=== PATIENT | female | born 1985 | race Caucasian/White ===

== ENCOUNTER 2019-09-18 11:00 | Day surgery (SDC) | payer BC, SELFPAY ==
[2019-09-12 12:08] LABS: CLARITY,URINE CLEAR (Clear); COLOR,URINE YELLOW (Yellow); GLUCOSE, URINE NEGATIVE (Neg); KETONES,URINE 15 mg/dl (Neg); LEUKOCYTE ESTERASE ,URINE NEGATIVE (Neg); NITRITES, URINE NEGATIVE (Neg); OCCULT BLOOD,URINE NEGATIVE (Neg); PROTEIN,URINE NEGATIVE (Neg); UROBILINOGEN,URINE 0.2 E.U/dL (0.2-1.0)
[2019-09-12 12:11] LABS: BASOPHILS % (AUTO) 0.6 % (0-1); EOSINOPHILS # (AUTO) 0.1 X10'3 (0-0.9); EOSINOPHILS % (AUTO) 1.3 % (0-6); LYMPHOCYTES # (AUTO) 2.2 X10'3 (1.1-4.8); LYMPHOCYTES % (AUTO) 35.2 % (21-51); MEAN CORPUSCULAR HEMOGLOBIN 29.3 PG (27.0-31.0); MEAN CORPUSCULAR VOLUME 86.1 FL (78-98); MEAN PLATELET VOLUME 7.5 FL (7.4-10.4); MONOCYTES # (AUTO) 0.5 X10'3 (0-0.9); MONOCYTES % (AUTO) 7.4 % (2-12); NEUTROPHILS # (AUTO) 3.4 X10'3 (1.8-7.7); NEUTROPHILS % (AUTO) 55.5 % (42-75); PRE OP HEMATOCRIT 42.8 % (35.0-45.0); PRE OP HEMOGLOBIN 14.6 g/dL (12.0-16.0); PRE OP PLATELET COUNT 215 X10'3 (140-440); RED BLOOD COUNT 4.97 X10'6 (4.20-5.60); RED CELL DISTRIBUTION WIDTH 13.4 % (11.5-14.5)
[2019-09-12 12:13] LABS: HCG SERUM QL NEGATIVE
[2019-09-12 12:22] LABS: ALBUMIN 4.2 G/DL (3.4-5.0); ALBUMIN/GLOBULIN RATIO 1.2 (1.1-1.5); ALKALINE PHOSPHATASE 62 IU/L (46-116); BLOOD UREA NITROGEN 13 MG/DL (7-18); BUN/CREATININE RATIO 15.5 (6.6-38.0); CALCIUM 9.1 MG/DL (8.5-10.1); CHLORIDE 105 MMOL/L (99-107); CREATININE 0.84 MG/DL (0.40-0.90); PRE OP ALT 23 U/L (30-65); PRE OP ANION GAP 11 (8-16); PRE OP AST 18 U/L (10-37); PRE OP BILIRUB, TOTAL 0.4 MG/DL (0.0-1.0); PRE OP GLUCOSE 92 MG/DL (70-104); PRE OP POTASSIUM 3.5 MMOL/L (3.4-5.1); PRE OP SODIUM 141 MMOL/L (135-145); TOTAL CARBON DIOXIDE 25.3 MMOL/L (24-32); TOTAL PROTEIN 7.6 G/DL (6.4-8.2); eGFR 79 ML/MIN
[2019-09-12 12:25] LABS: UA COLLECTION TYPE CLN CATCH MIDSTREAM
[~2019-09-18] VITALS: Ht 165.1 cm; Wt 83.9 kg
[2019-09-18] VITALS (7 sets, daily range): BP systolic 91–129; BP diastolic 54–81
[~2019-09-18 11:00] MED LIST: GENTAMICIN IV ONE; LACT1CAP65 PO; NORMAL SALINE IV ONE; famotidine 20mg tablet PO ONE; ringers solution, lacted 1,000 ML IV SCH; vancomycin 1,500 MG in NS 300ml IV soln IV ONE
[2019-09-18] MEDS ORDERED: fentaNYL/PF 50MCG/1 ML 2ML syringe ONE (14:54)
[2019-09-18] MEDS ORDERED: sevoflurane 250ml liquid IH ONE (14:55)
[2019-09-18] MEDS ORDERED: midazolam 2 mg/2 ml injection ONE (14:57)
[2019-09-18] MEDS ORDERED: propofol inj 20 ML IV ONE (14:57)
[2019-09-18] MEDS ORDERED: ringers solution, lacted 1,000 ML IV SCH (15:09)
[2019-09-18] MEDS ORDERED: meperidine/PF 25mg/ml syringe IV PRN ×3 (15:10)
[2019-09-18] MEDS ORDERED: ondansetron/PF 4mg/2ml inj IV PRN (15:10)
[2019-09-18] MEDS ORDERED: morphine 2 MG/ML inj. syringe IV PRN (15:10)
[2019-09-18] MEDS ORDERED: proCHLORperazine 10 MG/2 ml inj IV PRN (15:10)
[2019-09-18] MEDS ORDERED: morphine 4 MG/ML inj SYRINge IV PRN (15:10)
[2019-09-18] MEDS ORDERED: dexamethasone sod phosphate 4mg/ml inj. ONE (15:25)
[2019-09-18] MEDS ORDERED: ondansetron/PF 4mg/2ml inj ONE (15:25)
[2019-09-18] MEDS ORDERED: ketorolac trometh. 30mg/ml inj. ONE (15:30)
--- NOTE | 2019-09-18 15:39 | NUR ---
Received from OR via , accompanied by Anesthesiologist DR APPIAH and report given by Anesthesiolgist. AWAKENS TO VOICE. VITALS STABLE. DRESSING DI. ELISA PAIN.
--- NOTE | 2019-09-18 16:49 | NUR ---
AWAKE AND ORIENTED. VITALS STABLE. DRESSING DI. ELISA PAIN. HOME WITH HER SPOUSE AT THIS TIME.
== END 2019-09-18 16:49 | disposition home or self-care (01) ==
LOC: PAS 11:00
PROVIDERS: ATTEND Obstetrics & Gynecology Obstetrics
DX: N93.8 Other specified abnormal uterine and vaginal bleeding (principal); D64.9 Anemia, unspecified; M19.90 Unspecified osteoarthritis, unspecified site; F32.9 Major depressive disorder, single episode, unspecified; E66.9 Obesity, unspecified; Z68.30 Body mass index [BMI] 30.0-30.9, adult; Z98.890 Other specified postprocedural states; Z11.59 Encounter for screening for other viral diseases; Z79.899 Other long term (current) drug therapy; Z88.5 Allergy status to narcotic agent; Z88.0 Allergy status to penicillin; Z72.89 Other problems related to lifestyle; Z83.3 Family history of diabetes mellitus; Z82.49 Family history of ischemic heart disease and other diseases of the circulatory system
CPT/HCPCS: 36415; 58563; 80053; 81003; 82948; 84703; 85025; 86885; 86900; 86901; J1100; J1580; J1885; J2250; J2405; J2704; J3010; J3370; J7040; J7120; U0003; A4264; A4355; A4618; A6258; A7000

== ENCOUNTER 2022-12-21 05:26 | Day surgery (SDC) | payer BC, SELFPAY ==
[2022-12-14 14:35] LABS: BASOPHILS % (AUTO) 0.6 % (0-1); EOSINOPHILS # (AUTO) 0.1 X10'3 (0-0.9); EOSINOPHILS % (AUTO) 0.8 % (0-6); LYMPHOCYTES # (AUTO) 1.7 X10'3 (1.1-4.8); LYMPHOCYTES % (AUTO) 24.1 % (21-51); MEAN CORPUSCULAR HGB CONC 33.7 g/dL (33.0-36.5); MEAN CORPUSCULAR VOLUME 86.1 FL (78-98); MEAN PLATELET VOLUME 7.3 FL (7.4-10.4); MONOCYTES # (AUTO) 0.5 X10'3 (0-0.9); MONOCYTES % (AUTO) 6.6 % (2-12); NEUTROPHILS # (AUTO) 4.8 X10'3 (1.8-7.7); NEUTROPHILS % (AUTO) 67.9 % (42-75); PRE OP HEMOGLOBIN 14.1 g/dL (12.0-16.0); PRE OP PLATELET COUNT 242 X10'3 (140-440); PRE OP WHITE BLOOD COUNT 7.1 10'3 (4.8-10.8); RED BLOOD COUNT 4.87 X10'6 (4.20-5.60); RED CELL DISTRIBUTION WIDTH 14.3 % (11.5-14.5)
[2022-12-14 14:35] LABS: BILIRUBIN,URINE NEGATIVE (Neg); CLARITY,URINE CLEAR (Clear); COLOR,URINE STRAW (Yellow); GLUCOSE, URINE NEGATIVE (Neg); KETONES,URINE TRACE mg/dl (Neg); LEUKOCYTE ESTERASE ,URINE NEGATIVE (Neg); NITRITES, URINE NEGATIVE (Neg); OCCULT BLOOD,URINE NEGATIVE (Neg); PROTEIN,URINE NEGATIVE (Neg); UROBILINOGEN,URINE 0.2 E.U/dL (0.2-1.0)
[2022-12-14 14:52] LABS: ALBUMIN/GLOBULIN RATIO 1.2 (1.1-1.5); ALKALINE PHOSPHATASE 72 IU/L (46-116); BLOOD UREA NITROGEN 12 MG/DL (7-18); BUN/CREATININE RATIO 13.5 (10.0-20.0); CALCIUM 8.8 MG/DL (8.5-10.1); CHLORIDE 105 MMOL/L (99-107); CREATININE 0.89 MG/DL (0.40-0.90); PRE OP ALT 24 U/L (30-65); PRE OP ANION GAP 9 (8-16); PRE OP AST 10 U/L (10-37); PRE OP BILIRUB, TOTAL 0.3 MG/DL (0.0-1.0); PRE OP GLUCOSE 102 MG/DL (70-104); PRE OP POTASSIUM 3.5 MMOL/L (3.4-5.1); PRE OP SODIUM 139 MMOL/L (135-145); TOTAL CARBON DIOXIDE 25.3 MMOL/L (24-32); TOTAL PROTEIN 7.4 G/DL (6.4-8.2); eGFR 72 ML/MIN
[2022-12-14 14:54] LABS: HCG SERUM QL NEGATIVE
[2022-12-14 15:11] LABS: UA COLLECTION TYPE CLN CATCH MIDSTREAM
[~2022-12-21] VITALS: Ht 165.1 cm; Wt 93.6 kg
[2022-12-21] VITALS (14 sets, daily range): BP systolic 97–117; BP diastolic 48–70; PULSE 70–94; RESP 10–21; TEMP 97.2–98.1; O2SAT 93–100
[~2022-12-21 05:26] MED LIST changes: -GENTAMICIN IV ONE; -NORMAL SALINE IV ONE; -famotidine 20mg tablet PO ONE; -ringers solution, lacted 1,000 ML IV SCH; -vancomycin 1,500 MG in NS 300ml IV soln IV ONE
[2022-12-21] MEDS ORDERED: famotidine 20mg tablet PO ONE (05:30)
[2022-12-21] MEDS ORDERED: vancomycin 1,500 MG in NS 300ml IV soln IV ONE (05:30)
[2022-12-21] MEDS ORDERED: clindamycin-Cleocin 900mg/D5W 50 ML IV ONE (05:30)
[2022-12-21] MEDS: ringers solution, lacted 1,000 ML IV SCH ×4 (06:20→18:05)
[2022-12-21] MEDS ORDERED: fentaNYL /PF 50mcg/ml 5ml ampule ONE (07:27)
[2022-12-21] MEDS ORDERED: midazolam 1 mg/ML 2ml injection ONE (07:27)
[2022-12-21] MEDS ORDERED: rocuronium 10mg/ml inj IV ONE (07:30)
[2022-12-21] MEDS ORDERED: dexamethasone sod phosphate 4mg/ml inj. ONE (07:30)
[2022-12-21] MEDS ORDERED: propofol inj 20 ML IV ONE (07:30)
[2022-12-21] MEDS ORDERED: LIDOcaine 2% (20mg/ml) 5ml vial ONE (07:30)
[2022-12-21] MEDS ORDERED: morphine 4 MG/ML inj SYRINge IV PRN (07:35)
[2022-12-21] MEDS ORDERED: morphine 2 MG/ML inj. syringe IV PRN (07:35)
[2022-12-21] MEDS ORDERED: ringers solution, lacted 1,000 ML IV SCH (07:35)
[2022-12-21] MEDS ORDERED: ondansetron/PF 4mg/2ml inj IV PRN ×2 (07:35→10:05)
[2022-12-21] MEDS ORDERED: meperidine/PF 25mg/ml syringe IV PRN ×2 (07:35)
[2022-12-21] MEDS ORDERED: proCHLORperazine 10 MG/2 ml inj IV PRN (07:35)
[2022-12-21] MEDS ORDERED: clindamycin phosphate 40gm vag cream ONE (07:44)
[2022-12-21] MEDS ORDERED: BUPIVAcaine/PF 2.5 mg/ml (0.25%) 30ml vial ONE (07:45)
[2022-12-21] MEDS ORDERED: neomy sulf/polymyxin B sulf. GU irrigation 1ml amp IR ONE ×2 (07:45→08:25)
[2022-12-21] MEDS ORDERED: vasoPRESSIN 20 units/ml inj. ONE (07:46)
[2022-12-21] MEDS ORDERED: sevoflurane 250ml liquid IH ONE (07:50)
[2022-12-21] MEDS ORDERED: ondansetron/PF 4mg/2ml inj ONE (07:54)
[2022-12-21] MEDS ORDERED: BUPIVAcaine/PF 2.5mg/ml (0.25%) 10ml vial IJ ONE (08:25)
[2022-12-21] MEDS ORDERED: clindamycin phosphate 40gm vag cream VG ONE (09:17)
[2022-12-21] MEDS ORDERED: ketorolac tromethamine 15mg/ml inj. IV PRN (10:05)
[2022-12-21] MEDS ORDERED: temazepam 15mg capsule PO PRN (10:05)
[2022-12-21] MEDS ORDERED: metoclopramide 5 mg/ml inj IV PRN (10:05)
[2022-12-21] MEDS ORDERED: normal saline 500ml IV soln 500 ML IV PRN (10:05)
[2022-12-21] MEDS ORDERED: LORazepam 2 mg/ml vial IV PRN (10:05)
[2022-12-21] MEDS ORDERED: diphenhydrAMINE 50 mg/ml inj IV PRN (10:05)
[2022-12-21] MEDS ORDERED: ketorolac trometh. 30mg/ml inj. IV PRN (10:05)
[2022-12-21] MEDS ORDERED: magnesium hydroxide 30ml (MOM) UD suspension PO PRN (10:05)
--- NOTE | 2022-12-21 10:18 | NUR ---
Received from OR via HOSPITAL BED, accompanied by Anesthesiologist DR. MI and report given by Anesthesiolgist. LAP SITES CDI, DERMABOND. MASK5L WITH 99% O2. LEFT HAND 20G PIV WITH LR INFUSING PER ORDER. RESPONDS TO VERBAL STIMULI. VSS.
[2022-12-21] MEDS: meperidine/PF 25mg/ml syringe IV PRN ×2 (10:35→10:51)
--- NOTE | 2022-12-21 10:58 | NUR ---
PATIENT MEETS DISCHARGE CRITERIA FROM RECOVERY. REPORT CALLED TO FARZAD PRIMARY NURSE. PATIENT TRANSPORTED WITH BELONGINGS TO [facility]. STATES PAIN IS MANAGEABLE. LAP SITES INTACT.
[2022-12-21] MEDS: traMADol 50MG tablet PO PRN ×2 (13:17→18:38)
--- NOTE | 2022-12-21 17:46 | NUR ---
Per MD chatterjee to d/c catheter. Catheter was removed at 1645 and pt has been up to the restroom and urinated. Pt wishes to discharge tonight. MD chatterjee with discharge plan. .
--- NOTE | 2022-12-21 18:43 | NUR ---
Problems reprioritized. Patient report given, questions answered & plan of care reviewed with DANICA Song.
--- NOTE | 2022-12-21 18:46 | NUR ---
Discharge paper given to pt. and all the instruction explained to pt. Pt. went home via car with family.
[2022-12-21] MEDS ORDERED: docusate sod 100mg capsule PO SCH (20:00)
[2022-12-22] MEDS ORDERED: lactobacillus rhamnosus 10,000 MMU CELLS/CAPSULE PO SCH (08:00)
== END 2022-12-21 18:50 | disposition home or self-care (01) ==
LOC: PAS 05:26 → ORTHO 4S 10:13 → PAS 18:50
PROVIDERS: ATTEND Obstetrics & Gynecology Obstetrics
DX: N92.1 Excessive and frequent menstruation with irregular cycle (principal); M19.90 Unspecified osteoarthritis, unspecified site; E28.2 Polycystic ovarian syndrome; E66.9 Obesity, unspecified; Z68.32 Body mass index [BMI] 32.0-32.9, adult; Z79.899 Other long term (current) drug therapy; Z98.890 Other specified postprocedural states; Z88.0 Allergy status to penicillin; Z88.5 Allergy status to narcotic agent
CPT/HCPCS: 36415; 58552; 71046; 80053; 81003; 82948; 84703; 85025; 86885; 86900; 86901; 93005; J1100; J2175; J2250; J2405; J2704; J3010; J3370; J3490; J7030; J7120; Z7506; Z7508; Z7512; A4314; A4618; A7000; G0378

== ENCOUNTER 2023-08-29 15:57 | Emergency (ER) | payer BC ==
[~2023-08-29] VITALS: Ht 165.1 cm; Wt 96.2 kg
[2023-08-29 16:09] VITALS: BP 126/75; PULSE 81; RESP 16; TEMP 97.8; O2SAT 99
[2023-08-29 17:37] LABS: BASOPHILS % (AUTO) 0.2 % (0-1); EOSINOPHILS % (AUTO) 0.2 % (0-6); HEMATOCRIT 43.6 % (35.0-45.0); HEMOGLOBIN 14.8 g/dl (12.0-16.0); LYMPHOCYTES # (AUTO) 1.1 X10'3 (1.1-4.8); LYMPHOCYTES % (AUTO) 8.7 % (21-51); MEAN CORPUSCULAR HEMOGLOBIN 29.1 PG (27.0-31.0); MEAN CORPUSCULAR VOLUME 85.8 FL (78-98); MEAN PLATELET VOLUME 7.4 FL (7.4-10.4); MONOCYTES # (AUTO) 0.5 X10'3 (0-0.9); MONOCYTES % (AUTO) 3.8 % (2-12); NEUTROPHILS % (AUTO) 87.1 % (42-75); PLATELET COUNT 263 X10'3 (140-440); RED BLOOD COUNT 5.08 X10'6 (4.20-5.60); RED CELL DISTRIBUTION WIDTH 13.6 % (11.5-14.5); WHITE BLOOD COUNT 12.6 X10'3 (4.5-11.0)
[2023-08-29 17:57] LABS: ALANINE AMINOTRANSFERASE 22 U/L (12-78); ALBUMIN 4.1 G/DL (3.4-5.0); ALBUMIN/GLOBULIN RATIO 1.1 (1.1-1.5); ALKALINE PHOSPHATASE 73 IU/L (46-116); AMYLASE 31 U/L (25-115); ANION GAP 7 (8-16); ASPARTATE AMINO TRANSFERASE 13 U/L (10-37); BILIRUBIN,TOTAL 0.4 MG/DL (0.1-1.0); BLOOD UREA NITROGEN 17 MG/DL (7-18); BUN/CREATININE RATIO 20.7 (10.0-20.0); CALCIUM 9.7 MG/DL (8.5-10.1); CHLORIDE 103 MMOL/L (99-107); CREATININE 0.82 MG/DL (0.40-0.90); GLUCOSE 110 MG/DL (70-104); LIPASE 21 U/L (16-77); SODIUM 138 MMOL/L (135-145); TOTAL CARBON DIOXIDE 27.6 MMOL/L (24-32); TOTAL PROTEIN 7.9 G/DL (6.4-8.2); eCRCL 85 ML/MIN; eGFR 79 ML/MIN
== END 2023-08-30 04:13 | disposition left against medical advice (07) ==
LOC: ER 15:57
DX: R10.31 Right lower quadrant pain (principal); Z53.21 Procedure and treatment not carried out due to patient leaving prior to being seen by health care provider
CPT/HCPCS: 36415; 80053; 82150; 83690; 85025